=== PATIENT | male | born 1955 | race Two or more races ===

== ENCOUNTER 2017-05-07 03:00 | Inpatient (IN) | payer MEDICARE, MEDICAID ==
--- NOTE | 2017-05-07 03:41 | ED Physician Chart ---
ED Chief Complaint/HPI - Patient Information Date Seen:: 05/07/17 Time Seen:: 03:30 Chief Complaint:: seizure History of Present Illness:: Patient had a seizure at his intermediate facility. Patient fell striking left inferior chest wall and he complains of pain at that site. Prior to today' s seizure he states that his last seizure was yesterday. Patient's had seizures since 1975. Allergies:: Allergies Allergy/AdvReac Type Severity Reaction Status Date / Time onions and garlic Allergy Uncoded 05/07/17 03:27 Vitals:: Vital Signs - 8 hr 05/07/17 05/07/17 03:17 03:20 Temp 97.5 F 97.5 F HR 75 74 RR 18 18 BP 122/71 122/71 O2 Sat % 99 96 Historian:: Patient Review:: Transfer documents Reviewed ED Review of Systems - Review of Systems General/Constitutional: No fever, No chills Skin: No skin lesions Head: No headache Eyes: No loss of vision ENT: No earache Neck: No neck pain Cardio Vascular: No chest pain, No palpitations Pulmonary: No SOB GI: No nausea, No vomiting, No diarrhea Musculoskeletal: No bone or joint pain Endocrine: No polyuria Psychiatric: No prior psych history, No depression, No anxiety Hematopoietic: No bruising Allergic/Immuno: No urticaria Neurological: Seizure ED Past Medical History - Past Medical History Past Medical History: Seizures Family History: None Social History: Non Smoker, No Alcohol, No Drug Use Psychiatricy History: None Medication: Reviewed Family Medical History - Family Member Mother History Unknown: Yes ED Physical Exam - Physical Examination General/Constitutional: Well-developed, well-nourished, Alert, No distress Head: Atraumatic Eyes: Lids, conjuctiva normal, PERRL Skin: Nl inspection, No rash, No skin lesions, No ecchymosis ENMT: External ears, nose nl, TM canals nl, Nasal exam nl Other ENMT comments:: Edentulous Neck: No nuchal rigidity Respiratory: Nl effort/Exclusion Other Respiratory comments:: Left lower chest wall tenderness Cardio Vascular: RRR GI: No tenderness/rebounding/guarding : No CVA tenderness Extremities: No tenderness or effusion Neuro/Psych: No focal deficits ED Labs/Radiology/EKG Results - Lab Results Results: Laboratory Results - last 24 hr 05/07/17 05/07/17 05/07/17 03:59 03:59 03:59 WBC 8.4 RBC 4.42 Hgb 14.9 Hct 42.9 MCV 96.9 MCH 33.7 H MCHC Differential 34.8 RDW 12.1 Plt Count 162 MPV 10.5 Neutrophils % 53.1 Lymphocytes % 33.5 Monocytes % 10.7 H Eosinophils % 2.0 Basophils % 0.7 Sodium 136 Potassium 4.2 Chloride 107 Carbon Dioxide 21.8 Anion Gap 11.4 BUN 20 Creatinine 0.7 Est GFR ( Amer) > 60.0 Est GFR (Non-Af Amer) > 60.0 BUN/Creatinine Ratio 28.6 Glucose 104 Calcium 8.7 Phenytoin 3.7 L Valproic Acid 51.1 - Radiology Results Results: Left rib x-rays negative for fracture; calcification of the aortic arch noted ED Septic Shock - . Is Septic Shock (SBP<90, OR Lactate>4 mmol\L) present?: No - <6hrs of presentation: Vital Signs: Vital Signs - 8 hr 05/07/17 05/07/17 03:17 03:20 Temp 97.5 F 97.5 F HR 75 74 RR 18 18 BP 122/71 122/71 O2 Sat % 99 96 ED Reassessment (Disposition) - Reassessment Reassessment Condition:: Improved - Diagnosis Diagnosis:: Chest wall contusion; seizure; known seizure disorder - Aftercare/Follow up Instructions Aftercare/Follow-Up Instructions:: Refer to Discharge Instructions - Patient Disposition Discharge/Transfer:: Home Condition at Disposition:: Stable, Improved
[2017-05-07 04:13] LABS: % BASOPHILS 0.7 % (0.0-2.0); % LYMPHOCYTES 33.5 % (20.0-50.0); % MONOCYTES 10.7 % (2.0-10.0); % NEUTROPHILS 53.1 % (40.0-80.0); HEMATOCRIT 42.9 % (41.0-60); HEMOGLOBIN 14.9 gm/dL (12-16); MEAN CELL VOLUME 96.9 fl (80-99); MEAN CORPUSCULAR HEMOGLOBIN 33.7 pg (26.0-30.0); MEAN CORPUSCULAR HGB CONC 34.8 pg (28.0-36.0); MEAN PLATELET VOLUME 10.5 fl; NEUTROPHILE ABSOLUTE 4.4 Th/cmm (1.8-8.0); PLATELET COUNT 162 Th/cmm (150-400); RED BLOOD COUNT 4.42 Mil/cmm (4.30-5.70); RED CELL DISTRIBUTION WIDTH 12.1 % (11.5-20.0); WHITE BLOOD COUNT 8.4 Th/cmm (4.8-10.8)
[2017-05-07 04:24] LABS: ANION GAP 11.4 (7.0-16.0); BUN - UREA NITROGEN 20 mg/dL (7-25); BUN/CREATININE RATIO 28.6; CALCIUM SERUM 8.7 mg/dL (8.6-10.3); CARBON DIOXIDE 21.8 mEq/L (21.0-31.0); CHLORIDE 107 mEq/L (98-107); CREATININE - SERUM 0.7 mg/dL (0.7-1.3); GLUCOSE 104 mg/dL (70-105); PHENYTOIN 3.7 ug/ml (10.0-20.0); POTASSIUM SERUM 4.2 mEq/L (3.5-5.1); SODIUM SERUM 136 mEq/L (136-145)
--- NOTE | 2017-05-07 07:09 | Diagnostic Imaging Report ---
Left RIBS (5 views) HISTORY: Pain, trauma No acute bony abnormalities. No fractures seen at this no acute pulmonary parenchymal or pleural abnormalities. Atherosclerotic calcification in the aorta. IMPRESSION: 1. No acute bony abnormality 2. Atherosclerotic vascular changes
--- NOTE | 2017-05-07 12:47 | Diagnostic Imaging Report ---
Some: CT examination of the brain. HISTORY: Recurrent seizure. Total DLP equals 613 CTDI equals 37.8 Findings: Multiple contiguous thin section of the brain were obtained from the base of skull to the vertex without the administration of contrast material. No prior studies available for comparison. The study demonstrates large area of low density in the right frontotemporal parietal lobe suggestive of old infarct now presents with encephalomalacia. Small lacunar infarct right basal ganglia is noted. Left hemisphere is intact. There is no evidence for hemorrhage midline shift or edema. The bony calvarium is normal. There is evidence for a small mucous retention cyst left maxillary sinus. Vascular calcification of the vertebral arteries appreciated. 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 Small lacunar infarct in right basal ganglia. Atrophy, periventricular ischemic white matter changes. Atherosclerotic process vertebral arteries.
[2017-05-07] MEDS ORDERED: VTE Chemical Prophylaxis Screen/Admission MC PRN (14:51)
--- NOTE | 2017-05-07 20:39 | History and Physical ---
History of Present Illness - HPI Chief Complaint: Seizure HPI: 62 yrs old male with underlying history on seizure disorder on multiple seizure meds who reported to have seizure early this am so EMS was called and he was brought in to ER for further evaluation. Patient was evaluated in ER and subsequently admitted for further treatment. During evaluation patient stated he feels fine Seems awake alert denied any complaints Vital Signs: Last Vital Signs Temp 98.8 F 05/07/17 20:00 Pulse 96 05/07/17 20:00 Resp 20 05/07/17 20:00 BP 125/69 05/07/17 20:00 Pulse Ox 100 05/07/17 20:00 Past Medical History Cardiovascular: Report: No Pertinent Hx (Brain surgery) Pulmonary: Report: No Pertinent Hx [employer]: Report: Other (Traumatic brain injury) Psych: Report: No Pertinent Hx Musculoskeletal: Report: No Pertinent Hx Infectious Disease: Report: No Pertinent Hx Renal/: Report: No Pertinent Hx Endocrine: Report: No Pertinent Hx Dermatology: Report: No Pertinent Hx - Past Surgical History Past Surgical History: Other (B) Family Medical History - Family Member Mother History Unknown: Yes (No significant family history reported) Name:: benoit skelton Age: 62 Ethnicity: Living Status: Still Living Hx Family Cancer: Yes (grandma) Hx Family Coronary Artery Disease: Yes (uncle,grandmother) Hx Family Congestive Heart Failure: Yes Hx Family Hypertension: Yes Hx Family Stroke: Yes Hx Family Diabetes: Yes (father) Hx Family Seizures: Yes Hx Family Dementia: Yes Hx Family AIDS: No Hx Family HIV: No Hx Family COPD: Yes Hx Family Hepatitis: No Hx Family Psychiatric Problems: No Hx Family Tuberculosis: Yes (grandma) Social History Smoke: No Alcohol: None Drugs: None, Other (Board and Care facility) Lives: Other (Board and care facility) - Medications Home Medications: Home Medication Medication Instructions Recorded Type Divalproex DR [Depakote DR] 1,000 mg PO BID 05/07/17 History Lacosamide [Vimpat] 200 mg PO BID 05/07/17 History Phenytoin Sodium Extended 200 mg PO BID 05/07/17 History - Allergies Allergies/Adverse Reactions: Allergies Allergy/AdvReac Type Severity Reaction Status Date / Time onions and garlic Allergy Uncoded 05/07/17 03:27 Review of Systems - Review of Systems Constitutional: Denies: Fever Eyes: Denies: Vision Change ENT: Denies: Throat Pain Respiratory: Denies: Cough, Shortness of Breath, Hemoptysis Cardiovascular: Denies: Chest Pain, Palpitations, Light Headedness Gastrointestinal: Report: No Significant Genitourinary: Report: No Significant Musculoskeletal: Report: No Significant Skin: Denies: No Significant Neurological: Report: Seizures Physical Exam - Physical Exam Neck: Report: Within normal limits Cardiovascular Systems: Report: Regular, Rate and Rhythm Respiratory: Report: Breath Sounds are within normal limits Abdomen: Report: Non-tender to palpation Back: Report: Inspection of back is within normal limits. Skin: Report: Color of skin is within normal limits Neuro/Psych: Report: A+Ox3, No new focal deficits - Lab Results All Lab Results last 24 hours: Laboratory Last Values WBC 8.4 Th/cmm (4.8-10.8) 05/07/17 03:59 RBC 4.42 Mil/cmm (4.30-5.70) 05/07/17 03:59 Hgb 14.9 gm/dL (12-16) 05/07/17 03:59 Hct 42.9 % (41.0-60) 05/07/17 03:59 MCV 96.9 fl (80-99) 05/07/17 03:59 MCH 33.7 pg (26.0-30.0) H 05/07/17 03:59 MCHC Differential 34.8 pg (28.0-36.0) 05/07/17 03:59 RDW 12.1 % (11.5-20.0) 05/07/17 03:59 Plt Count 162 Th/cmm (150-400) 05/07/17 03:59 MPV 10.5 fl 05/07/17 03:59 Neutrophils % 53.1 % (40.0-80.0) 05/07/17 03:59 Lymphocytes % 33.5 % (20.0-50.0) 05/07/17 03:59 Monocytes % 10.7 % (2.0-10.0) H 05/07/17 03:59 Eosinophils % 2.0 % (0.0-5.0) 05/07/17 03:59 Basophils % 0.7 % (0.0-2.0) 05/07/17 03:59 Sodium 136 mEq/L (136-145) 05/07/17 03:59 Potassium 4.2 mEq/L (3.5-5.1) 05/07/17 03:59 Chloride 107 mEq/L (98-107) 05/07/17 03:59 Carbon Dioxide 21.8 mEq/L (21.0-31.0) 05/07/17 03:59 Anion Gap 11.4 (7.0-16.0) 05/07/17 03:59 BUN 20 mg/dL (7-25) 05/07/17 03:59 Creatinine 0.7 mg/dL (0.7-1.3) 05/07/17 03:59 Est GFR ( Amer) > 60.0 ml/min (>90) 05/07/17 03:59 Est GFR (Non-Af Amer) > 60.0 ml/min 05/07/17 03:59 BUN/Creatinine Ratio 28.6 05/07/17 03:59 Glucose 104 mg/dL (70-105) 05/07/17 03:59 Calcium 8.7 mg/dL (8.6-10.3) 05/07/17 03:59 Phenytoin 3.7 ug/ml (10.0-20.0) L 05/07/17 03:59 Valproic Acid 51.1 ug/mL (50.0-100.0) 05/07/17 03:59 - Assessment Assessment: Recurrent seizure History of Traumatic brain surgery Weakness Ataxia - Plan Plan: Patient was admitted to [facility] Seizure precaution Dilantin loading dose was given in ER Neurology consulted Home seizure meds were continued CT Head normal PT/OT DVT prophylaxis I updated patient's brother over the phone re: pt's condition and treatment plan Plan of care discussed with nursing staff
== END 2017-05-08 01:35 | disposition short-term general hospital (02) | DRG 101 ==
LOC: ER 03:00 → TELE 08:44
PROVIDERS: ADMIT Family Medicine; ATTEND Family Medicine
DX: G40.909 Epilepsy, unspecified, not intractable, without status epilepticus (principal); R27.0 Ataxia, unspecified; S20.219A Contusion of unspecified front wall of thorax, initial encounter; W18.30XA Fall on same level, unspecified, initial encounter; Y93.89 Activity, other specified; Y92.89 Other specified places as the place of occurrence of the external cause; Y99.8 Other external cause status; Z91.018 Allergy to other foods; Z83.3 Family history of diabetes mellitus; Z82.49 Family history of ischemic heart disease and other diseases of the circulatory system; Z80.9 Family history of malignant neoplasm, unspecified; Z83.6 Family history of other diseases of the respiratory system; Z82.0 Family history of epilepsy and other diseases of the nervous system; Z82.3 Family history of stroke; Z79.899 Other long term (current) drug therapy
CPT/HCPCS: 36415-UA; 70450-TC; 71101-TC-LT; 80048-TC; 80164-TC; 80185-TC; 85025-TC; 97530